=== PATIENT | male | born 1970 | race Caucasian/White ===

== ENCOUNTER 2017-05-10 10:50 | Emergency (ER) | payer BC, OTHER ==
[2017-05-10 12:23] LABS: ADD MAN DIFF? NO
[2017-05-10 12:28] LABS: BASOPHILS % 0.5 % (0.0-2.0); EOSINOPHILS % 0.5 % (0.0-7.0); HEMATOCRIT 42.8 % (42.0-52.0); HEMOGLOBIN 14.8 g/dl (14.0-18.0); LYMPHOCYTES # 0.9 10^3/ul (0.8-2.9); LYMPHOCYTES % 16.8 % (15.0-51.0); MEAN CORPUSCULAR HEMOGLOBIN 29.3 pg (29.0-33.0); MEAN CORPUSCULAR HGB CONC 34.6 g/dl (32.0-37.0); MEAN CORPUSCULAR VOLUME 84.8 fl (82.0-101.0); MEAN PLATELET VOLUME 8.8 fl (7.4-10.4); MONOCYTE # 0.8 10^3/ul (0.3-0.9); MONOCYTES % 14.1 % (0.0-11.0); NEUTROPHIL # 3.8 10^3/ul (1.6-7.5); NEUTROPHILS % 68.1 % (39.0-77.0); PLATELET COUNT 283 10^3/UL (140-415); RED BLOOD COUNT 5.05 10^6/ul (4.70-6.10)
[2017-05-10 12:28] LABS: WHITE BLOOD COUNT 5.6 10^3/ul (4.8-10.8)
[2017-05-10 12:34] LABS: ADD UMIC NO; UR ASCORBIC ACID 20 mg/dL (NEGATIVE); UR BILIRUBIN (Dip) NEGATIVE (NEGATIVE); UR BLOOD (Dip) NEGATIVE (NEGATIVE); UR CLARITY CLEAR (CLEAR); UR COLOR YELLOW (YELLOW); UR GLUCOSE (Dip) NEGATIVE (NEGATIVE); UR KETONES (Dip) NEGATIVE (NEGATIVE); UR LEUKOCYTE ESTERASE (Dip) NEGATIVE Leu/ul (NEGATIVE); UR NITRITE (Dip) NEGATIVE (NEGATIVE); UR SPECIFIC GRAVITY (Dip) 1.019 (1.003-1.030); UR TOTAL PROTEIN (Dip) NEGATIVE (NEGATIVE); UR UROBILINOGEN (Dip) NEGATIVE (NEGATIVE)
[2017-05-10 12:47] LABS: ALANINE AMINOTRANSFERASE 46 IU/L (13-69); ALBUMIN 4.6 g/dl (3.3-4.9); ALBUMIN/GLOBULIN RATIO 1.31; ALKALINE PHOSPHATASE 71 IU/L (42-121); ANION GAP 15 (8-16); ASPARTATE AMINO TRANSFERASE 28 IU/L (15-46); BILIRUBIN,INDIRECT 0.1 mg/dl (0-1.1); BILIRUBIN,TOTAL 0.1 mg/dl (0.2-1.3); BLOOD UREA NITROGEN 14 mg/dl (7-20); CALCIUM 9.3 mg/dl (8.4-10.2); CARBON DIOXIDE 24 mmol/L (21-31); CHLORIDE 101 mmol/L (97-110); CREATININE 0.87 mg/dl (0.61-1.24); GLUCOSE 121 mg/dl (70-220); POTASSIUM 3.8 mmol/L (3.5-5.1); SODIUM 136 mmol/L (135-144); TOTAL PROTEIN 8.1 g/dl (6.1-8.1)
== END 2017-05-10 13:55 | disposition home or self-care (01) ==
LOC: FTE 10:50
DX: N48.1 Balanitis (principal)
CPT/HCPCS: 36415; 80053; 81003; 85025; 87591; 99283

== ENCOUNTER 2018-10-12 12:47 | Emergency (ER) | payer BC ==
[2018-10-12] MEDS: FLUORESCEIN STRIP BOTH EYES (14:14)
[2018-10-12] MEDS: ONDANSETRON (ODT) 4 MG TAB ODT (14:14)
[2018-10-12] MEDS: TETRACAINE 0.5% 4 ML OPH LEFT EYE (14:14)
[2018-10-12] MEDS: morphine LIQ (10 MG/5 ML) CUP PO (14:15)
[2018-10-12] MEDS: OPHTHALMIC IRRIG SOLUTION 120 ML LEFT EYE (14:16)
[2018-10-12] MEDS: DEXAMETHASONE (1 MG/ML PO SYG) PO (14:17)
== END 2018-10-12 15:03 | disposition home or self-care (01) ==
LOC: FTE 12:47
DX: H16.292 Other keratoconjunctivitis, left eye (principal)
CPT/HCPCS: 99283

== ENCOUNTER 2018-12-20 13:30 | Emergency (ER) | payer BC ==
[2018-12-20] MEDS: IBUPROFEN 800 MG TAB PO (14:09)
== END 2018-12-20 16:05 | disposition home or self-care (01) ==
LOC: E/R 16:05
DX: M79.89 Other specified soft tissue disorders (principal)
CPT/HCPCS: 73590; 93971; 99284-25